=== PATIENT | male | born 1960 | race Caucasian/White ===

== ENCOUNTER 2016-06-20 09:49 | Day surgery (SDC) | payer MEDICARE ==
[~2016-06-20] VITALS: Ht 185.4 cm; Wt 62.7 kg
[~2016-06-20 09:49] MED LIST: BACTRIM DS TABL1 TAB PO; ISENTRESS400 MG PO; LIPITOR20 MG PO; NORVIR100 MG PO; PREZISTA600 MG PO; TRUVADA 200 MG1 EACH PO
[2016-06-20] MEDS ORDERED: LEVOTHYROXINE50 MCG PO (12:56)
[2016-06-20 12:57] VITALS: BP 117/73; Ht 185.4 cm; Wt 62.7 kg
[2016-06-20 13:01] LABS: BASOPHILS 0.5 % (0.0-2.0); EOSINOPHILS 0.5 % (0-7); HEMOGLOBIN 14.1 g/dL (13.5-17.5); IMMATURE GRANULOCYTES 0.5 % (0-5); LYMPHOCYTES 26.1 % (15-50); MCH 32.7 pg (26.0-34.0); MCHC 32.8 g/dL (31.0-37.0); MCV 99.8 fL (80.0-100.0); MEAN PLATELET VOLUME 9.9 fL (7.4-10.4); MONOCYTES 13.1 % (2-11); NEUTROPHILS 59.3 % (40-80); RBC 4.31 10x6/uL (4.20-6.10); RDW 14.7 % (11.5-14.5); WBC 4.2 10x3/uL (4.8-10.8)
[2016-06-20 13:03] LABS: PLATELET COUNT 171 10x3/uL (130-400)
[2016-06-20 13:14] LABS: CALC OSMOLALITY 282 mosm/kg (275-300); CALCIUM 9.1 mg/dL (8.5-10.1); CARBON DIOXIDE 28.3 mmol/L (21.0-32.0); CHLORIDE - SERUM 105 mmol/L (98-107); CREATININE - SERUM 0.8 mg/dL (0.6-1.3); GLUCOSE 98 mg/dL (74-106); POTASSIUM - SERUM 3.7 mmol/L (3.5-5.1); SODIUM 143 mmol/L (136-145); UREA NITROGEN 6 mg/dL (7-18); eGFR NON AFRICAN AMERICAN > 90 mL/min (90-120)
--- NOTE | 2016-06-20 16:10 | NUR ---
DISCHARGE INSTRUCTIONS REVIEWED WITH PATIENT, PATIENT DISCHARGED HOME VIA WHEELCHAIR TO PRIVATE VEHICLE WITH SIGNIFICANT OTHER
--- NOTE | 2016-06-21 09:05 | OP ---
PATIENT NAME: SUJEY BENEDICT MEDICAL RECORD: [id number] :62 LOCATION:[facility] ADMISSION DATE: SURGEON: VALENTE MONSALVE DO DATE OF OPERATION: 06/20/2016 PROCEDURE: Colonoscopy with biopsies. SCOPE: Olympus video pediatric colonoscope. MEDICATIONS: Propofol IV per anesthesia. INDICATIONS FOR PROCEDURE: History of malignant tumor of rectum diagnosed in 2011, status post surgical intervention with recurrence of disease and secondary therapies. FINDINGS: Informed consent was given. The patient was made comfortable with propofol IV per anesthesia. Once adequate sedation was reached by slow push IV propofol, the patient was placed on his left side. A digital rectal examination was performed. There was a single area that felt mildly nodular to palpation. This did not necessary feel mass-like and could be related to past interventions. After this, the endoscope was advanced through the rectum under direct visualization to the cecum, evidenced by the ileocecal valve and appendiceal orifice. Scope was withdrawn and the mucosa was carefully examined. Withdrawal time was 18 minutes. The prep was poor to fair on the right side and required significant irrigation and still left visualization less than ideal. It is possible that small polyps could have potentially been missed. That being said, there were no polyps throughout the entire colon. In the rectum, a retroflexion was performed. There were some mild changes consistent with proctitis, which consisted of mild telangiectasias felt to be related to past treatments. Right at the anal verge, there is a questionable nodular, plaque-like site, which measured probably 3 mm in diameter. Multiple biopsies were taken of this site and surrounding tissue to be submitted for pathology. There are no obvious mass or other abnormalities involving the rectum or anal verge. IMPRESSION: 1. 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 2. Questionable nodular mucosa in the setting of prior intervention for past rectal cancer, biopsies taken. PLAN AND RECOMMENDATIONS: 1. Discharge home when recovery parameters are met. 2. Continue current diet. 3. Continue current medications. 4. Follow up on biopsy specimen results. 5. Recall for colonoscopy will be dependent on biopsy results and referring physician's request for followup. TRANSINT:[id number] Voice Confirmation ID: [id number] DOCUMENT ID: [id number] OPERATIVE REPORT [id number] SUJEY BENEDITC VALENTE MONSALVE DO at 3320 CC: [id number] DICTATION DATE: 06/20/16 1525 [employer] DIRECTOR: 06/20/16 1927 [facility] [place] 06/20/16 [facility] [address] [place] [address]
== END 2016-06-20 16:10 | disposition home or self-care (01) ==
LOC: D.OPS 09:49
PROVIDERS: Anesthesiology
DX: K62.89 Other specified diseases of anus and rectum (principal); I78.1 Nevus, non-neoplastic; Z85.048 Personal history of other malignant neoplasm of rectum, rectosigmoid junction, and anus